=== PATIENT | male | born 1995 | race Caucasian/White ===

== ENCOUNTER 2019-05-31 08:03 | Emergency (ER) | payer SELFPAY ==
[~2019-05-31] VITALS: Ht 167.6 cm; Wt 67.1 kg
[2019-05-31 08:08] VITALS: BP 154/98
== END 2019-05-31 09:20 | disposition home or self-care (01) ==
LOC: ER 08:08
DX: J30.9 Allergic rhinitis, unspecified (principal); Z88.2 Allergy status to sulfonamides
CPT/HCPCS: 71045-TC